=== PATIENT | female | born 1985 | race Caucasian/White ===

== ENCOUNTER 2017-12-12 09:03 | Inpatient (IN) | payer MEDICAID, OTHER ==
[~2017-12-12] VITALS: Ht 149.9 cm; Wt 72.1 kg
[~2017-12-12 09:03] MED LIST: FERR325E14 PO; IBUP-974 PO; PREN-385 PO
[2017-12-12] MEDS ORDERED: LACTATED RINGERS 1,000 ML IV SCH (09:32)
[2017-12-12] MEDS ORDERED: OXYTOCIN 20 UNITS in LACTATED RINGERS 1,000 ML IV SCH (09:32)
[2017-12-12] MEDS ORDERED: NALBUPHINE 10 MG/ML AMP IVP PRN (09:35)
[2017-12-12] MEDS ORDERED: OXYTOCIN 10 UNITS/ML VIAL IM ONE (09:35)
[2017-12-12] MEDS ORDERED: AMPICILLIN 2,000 MG in NACL 0.9% 100 ML IV SCH (09:46)
[2017-12-12 10:54] LABS: BASOPHILS % (AUTO) 0.2 % (0.0-2.0); EOSINOPHILS % (AUTO) 0.3 % (0.0-4.0); HEMATOCRIT 36.3 % (36-48); LYMPHOCYTES # (AUTO) 1.6 K/uL (2.5-16.5); LYMPHOCYTES % (AUTO) 19.3 % (20.5-51.1); MEAN CORPUSCULAR HEMOGLOBIN 29 pg (27-31); MEAN CORPUSCULAR HGB CONC 33 g/dL (33-37); MEAN CORPUSCULAR VOLUME 87.2 fL (80-94); MONOCYTES # (AUTO) 0.5 K/uL (0.8-1.0); MONOCYTES % (AUTO) 6.1 % (1.7-9.3); NEUTROPHILS # (AUTO) 6.3 K/uL (1.8-7.7); NEUTROPHILS % (AUTO) 74.1 % (42.2-75.2); PLATELET COUNT (AUTO) 211 K/uL (140-450); RED BLOOD CELL COUNT(AUTO) 4.16 MIL/uL (4.20-5.40); RED CELL DISTRIBUTION WIDTH 14.3 % (11.6-13.7); WHITE BLOOD COUNT (AUTO) 8.6 K/uL (4.8-10.8)
[2017-12-12] MEDS ORDERED: AMPICILLIN 2,000 MG VIAL ONE (10:54)
[2017-12-12 11:14] LABS: BILIRUBIN,URINE NEGATIVE (NEGATIVE); COLOR,URINE YELLOW (YELLOW); LEUKOCYTE ESTERASE ,URINE NEGATIVE (NEGATIVE); NITRITE, URINE NEGATIVE (NEGATIVE); PH,URINE 6.5 (5.0-9.0); UGLUCOSE NEGATIVE (NEGATIVE)
[2017-12-12 11:36] LABS: WBC,URINE 0-5 (RARE) /HPF (0-5)
[2017-12-12 11:37] LABS: ALBUMIN 2.8 g/dL (3.4-5.0); ANION GAP 16.3 (8-16); CARBON DIOXIDE 21.4 mmol/L (21-32); CREATININE 0.6 mg/dL (0.6-1.3); POTASSIUM 3.7 mmol/L (3.5-5.1); TOTAL BILIRUBIN 0.5 mg/dL (0.0-1.0)
[2017-12-12 11:38] LABS: BLOOD, URINE 1+ (NEGATIVE)
[2017-12-12 11:39] LABS: APPEARANCE,URINE SLIGHTLY HAZY (CLEAR); RBC,URINE 0-5 (RARE) /HPF (0-5)
[2017-12-12 12:06] LABS: RAPID PLASMA REAGIN NON-REACTIVE (Non Reactiv)
[2017-12-12 12:25] VITALS: BP 115/74
[2017-12-12] MEDS ORDERED: NALBUPHINE 10 MG/ML AMP ONE (13:13)
[2017-12-12] MEDS ORDERED: PROMETHAZINE 25 MG/ML VIAL ONE (13:13)
[2017-12-12] MEDS ORDERED: AMPICILLIN 1,000 MG in NACL 0.9% 50 ML IV SCH (14:00)
[2017-12-12] MEDS ORDERED: OXYTOCIN 10 UNITS/ML VIAL ONE (14:34)
[2017-12-12] MEDS ORDERED: METHYLERGONOVINE 0.2 MG/ML AMP ONE (15:23)
[2017-12-12] MEDS ORDERED: METHYLERGONOVINE 0.2 MG/ML AMP IM PRN (15:35)
[2017-12-12] MEDS ORDERED: IBUPROFEN 800 MG TAB PO PRN (16:40)
[2017-12-12] MEDS ORDERED: oxyCODONE/APAP 5/325 MG 1 TAB TAB PO PRN (16:40)
[2017-12-12] MEDS ORDERED: BENZOCAINE/MENTHOL 20%-0.5% 60 GM CAN TP PRN (16:40)
[2017-12-12] MEDS ORDERED: HYDROcodone/APAP 5/325 MG 1 TAB TAB PO PRN (16:40)
[2017-12-12] MEDS ORDERED: TEMAZEPAM 15 MG CAP PO PRN (16:40)
[2017-12-12] MEDS ORDERED: DOCUSATE SOD/SENNA 50/8.6 MG 1 TAB PO SCH (21:00)
[2017-12-13 08:03] LABS: HEMATOCRIT 30.9 % (36-48); HEMOGLOBIN 10.1 g/dL (12.0-16.0)
--- NOTE | 2017-12-13 09:11 | NUR ---
PATIENT HAS BEEN SCREENED AND CATEGORIZED LOW NUTRITION RISK. PATIENT WILL BE SEEN WITHIN 7 DAYS OF ADMISSION. 12/18/[address]
== END 2017-12-14 12:10 | disposition home or self-care (01) | DRG 775 ==
LOC: MLD 09:03 → OBSVTOIN 09:36 → MFCC 18:30
PROVIDERS: ADMIT Obstetrics & Gynecology; ATTEND Obstetrics & Gynecology
PROC: 10E0XZZ Delivery of Products of Conception, External Approach (ICD-10-PCS; principal; 2017-12-12)
PROC: 0HQ9XZZ Repair Perineum Skin, External Approach (ICD-10-PCS; 2017-12-12)
DX: O70.0 First degree perineal laceration during delivery (principal); Z37.0 Single live birth; Z3A.37 37 weeks gestation of pregnancy; Z28.21 Immunization not carried out because of patient refusal
CPT/HCPCS: 36415; 59409; 80053; 81001; 85018; 85025; 86592; 86886; 86900; 86901; G0378; J0290; J2210; J2300; J2550; J2590; J7120

== ENCOUNTER 2021-11-09 19:00 | Inpatient (IN) | payer OTHER ==
[~2021-11-09] VITALS: Ht 154.9 cm; Wt 68.9 kg
[2021-11-09] MEDS ORDERED: LACTATED RINGERS 1,000 ML IV SCH (19:40)
[2021-11-09 20:09] LABS: BASOPHILS % (AUTO) 0.3 % (0.0-2.0); EOSINOPHILS # (AUTO) 0.1 K/uL (0-0.4); EOSINOPHILS % (AUTO) 0.6 % (0.0-4.0); HEMATOCRIT 36.7 % (36-48); HEMOGLOBIN 12.3 g/dL (12.0-16.0); LYMPHOCYTES # (AUTO) 2.2 K/uL (2.5-16.5); LYMPHOCYTES % (AUTO) 25.3 % (20.5-51.1); MEAN CORPUSCULAR HEMOGLOBIN 30 pg (27-31); MEAN CORPUSCULAR HGB CONC 34 g/dL (33-37); MEAN CORPUSCULAR VOLUME 90.3 fL (80-94); MONOCYTES # (AUTO) 0.5 K/uL (0.8-1.0); MONOCYTES % (AUTO) 5.2 % (1.7-9.3); NEUTROPHILS % (AUTO) 68.6 % (42.2-75.2); PLATELET COUNT (AUTO) 243 K/uL (140-450); RED BLOOD CELL COUNT(AUTO) 4.07 MIL/uL (4.20-5.40); RED CELL DISTRIBUTION WIDTH 13.9 % (11.6-13.7); WHITE BLOOD COUNT (AUTO) 8.7 K/uL (4.8-10.8)
[2021-11-09 20:13] LABS: APPEARANCE,URINE CLEAR (CLEAR); BILIRUBIN,URINE NEGATIVE (NEGATIVE); BLOOD, URINE TRACE-I (NEGATIVE); COLOR,URINE YELLOW (YELLOW); LEUKOCYTE ESTERASE ,URINE 2+ (NEGATIVE); NITRITE, URINE NEGATIVE (NEGATIVE); PH,URINE 6.5 (5.0-9.0); UGLUCOSE NEGATIVE (NEGATIVE)
[2021-11-09 20:21] LABS: ALBUMIN 3.5 g/dL (3.4-5.0); ANION GAP 13.5 (8-16); CARBON DIOXIDE 24.7 mmol/L (21-32); CREATININE 0.7 mg/dL (0.6-1.3); POTASSIUM 3.2 mmol/L (3.5-5.1); TOTAL BILIRUBIN 0.4 mg/dL (0.0-1.0)
[2021-11-09 20:33] LABS: PROTHROMBIN TIME 10.1 secs (10.8-13.4)
[2021-11-09 20:34] LABS: RBC,URINE 0-5 /HPF (0-5)
[2021-11-09 20:35] LABS: CALCIUM OXALATE CRYSTALS,UR 0-10 /HPF (None Seen); OTHER CASTS, URINE None Seen /LPF (None Seen)
[2021-11-09 20:37] LABS: BARBITURATE, URINE NEGATIVE ng/ml (NEG <=200); BENZODIAZEPINE, URINE NEGATIVE ng/mL (NEG <=200); CANNABINOID, URINE NEGATIVE ng/mL (NEG <=50); COCAINE, URINE NEGATIVE ng/mL (NEG <=300); OPIATE, URINE NEGATIVE ng/mL (NEG <=2000); PHENCYCLIDINE SCREEN,URINE NEGATIVE ng/mL (NEG <=25)
[2021-11-09] MEDS: MISOPROSTOL 100 MCG TAB PO PRN (21:34)
[2021-11-09 21:43] VITALS: BP 112/55
[2021-11-10] MEDS: MISOPROSTOL 100 MCG TAB PO PRN ×3 (01:46→09:39)
--- NOTE | 2021-11-10 09:56 | NUR ---
PATIENT HAS BEEN SCREENED AND CATEGORIZED LOW NUTRITION RISK. PATIENT WILL BE SEEN WITHIN 7 DAYS OF ADMISSION. 11/09/[address] Addendum: 11/10/21 at [address] *CORRECTION* 11/16/21
[2021-11-10] MEDS ORDERED: ONDANSETRON 4 MG/2 ML VIAL IVP PRN (11:15)
[2021-11-10] MEDS: MORPHINE SULFATE 4 MG/ML SYR IVP PRN ×2 (11:29→17:04)
[2021-11-10] MEDS ORDERED: OXYTOCIN 20 UNITS in LACTATED RINGERS 1,000 ML IV SCH (19:20)
[2021-11-10] MEDS ORDERED: OXYTOCIN 20 UNITS/LR PREMIX 1,000 ML IV ONE (19:35)
[2021-11-11] MEDS ORDERED: METHYLERGONOVINE 0.2 MG/ML AMP IM PRN (03:40)
[2021-11-11] MEDS ORDERED: TEMAZEPAM 15 MG CAP PO PRN (03:40)
[2021-11-11] MEDS ORDERED: oxyCODONE/APAP 5/325 MG 1 TAB TAB PO PRN ×2 (03:40)
[2021-11-11] MEDS ORDERED: IBUPROFEN 800 MG TAB PO PRN (03:40)
[2021-11-11] MEDS ORDERED: METHYLERGONOVINE 0.2 MG TAB PO PRN (03:40)
[2021-11-11] MEDS ORDERED: BENZOCAINE/MENTHOL 20%-0.5% 60 GM CAN TP PRN (03:40)
[2021-11-11] MEDS ORDERED: OXYTOCIN 10 UNITS/ML VIAL IM PRN (03:40)
[2021-11-11 08:52] LABS: HEMATOCRIT 29.4 % (36-48); HEMOGLOBIN 9.9 g/dL (12.0-16.0)
[2021-11-11] MEDS ORDERED: DOCUSATE SOD/SENNA 50/8.6 MG 1 TAB PO SCH (21:00)
== END 2021-11-11 12:05 | disposition home or self-care (01) | DRG 807 ==
LOC: MLD 19:00 → OBSVTOIN 19:00
PROVIDERS: ADMIT Obstetrics & Gynecology; ATTEND Obstetrics & Gynecology
PROC: 10E0XZZ Delivery of Products of Conception, External Approach (ICD-10-PCS; principal; 2021-11-11)
DX: O36.4XX0 Maternal care for intrauterine death, not applicable or unspecified (principal); Z37.1 Single stillbirth; Z20.822 Contact with and (suspected) exposure to COVID-19; Z3A.21 21 weeks gestation of pregnancy
CPT/HCPCS: 36415; 59200; 59409; 76815; 80053; 80305; 81001; 85018; 85025; 85379; 85384; 85610; 85730; 86592; 86762; 86886; 86900; 86901; 87086; 87340; J2270; J2405; J2590; J7120; Q0092

== ENCOUNTER 2022-06-25 09:41 | Emergency (ER) | payer OTHER ==
[~2022-06-25] VITALS: Ht 154.9 cm; Wt 71.7 kg
[~2022-06-25 09:41] MED LIST changes: -IBUP-974 PO
[2022-06-25 09:44] VITALS: BP 153/69
--- NOTE | 2022-06-25 10:22 | NUR ---
36 yo/f presents to ED w c/o vaginal bleeding upon wakening x1 episode only upon wiping, reports she is approx 2 months , + int cramping 07/03 but none at this time. denies vaginal discharge. pmh: denies allergies: denies
--- NOTE | 2022-06-25 10:28 | NUR ---
US at bedside
[2022-06-25 11:10] LABS: APPEARANCE,URINE CLEAR (CLEAR); BILIRUBIN,URINE NEGATIVE (NEGATIVE); BLOOD, URINE 1+ (NEGATIVE); COLOR,URINE YELLOW (YELLOW); LEUKOCYTE ESTERASE ,URINE NEGATIVE (NEGATIVE); NITRITE, URINE NEGATIVE (NEGATIVE); UGLUCOSE NEGATIVE (NEGATIVE)
[2022-06-25 11:58] LABS: BASOPHILS % (AUTO) 0.4 % (0.0-2.0); EOSINOPHILS % (AUTO) 0.5 % (0.0-4.0); HEMATOCRIT 40.4 % (36-48); HEMOGLOBIN 13.4 g/dL (12.0-16.0); LYMPHOCYTES # (AUTO) 2.3 K/uL (2.5-16.5); LYMPHOCYTES % (AUTO) 26.5 % (20.5-51.1); MEAN CORPUSCULAR HEMOGLOBIN 30 pg (27-31); MEAN CORPUSCULAR HGB CONC 33 g/dL (33-37); MEAN CORPUSCULAR VOLUME 90.9 fL (80-94); MONOCYTES # (AUTO) 0.6 K/uL (0.8-1.0); MONOCYTES % (AUTO) 6.6 % (1.7-9.3); NEUTROPHILS # (AUTO) 5.8 K/uL (1.8-7.7); PLATELET COUNT (AUTO) 291 K/uL (140-450); RED BLOOD CELL COUNT(AUTO) 4.44 MIL/uL (4.20-5.40); RED CELL DISTRIBUTION WIDTH 13.9 % (11.6-13.7); WHITE BLOOD COUNT (AUTO) 8.8 K/uL (4.8-10.8)
[2022-06-25] MEDS ORDERED: PREN-371 PO (13:15)
[2022-06-25 14:04] VITALS: BP 119/71
--- NOTE | 2022-06-25 14:05 | NUR ---
Patient discharged with v/s stable. Written and verbal after care instructions given and explained. Patient alert, oriented and verbalized understanding of instructions. Ambulatory with steady gait. All questions addressed prior to discharge. ID band removed. Patient advised to follow up with PMD. Rx of vit given. Patient educated on indication of medication including possible reaction and side effects. Opportunity to ask questions provided and answered.
== END 2022-06-25 14:04 | disposition home or self-care (01) ==
LOC: MED 09:41
DX: O20.0 Threatened abortion (principal); Z3A.01 Less than 8 weeks gestation of pregnancy; Z79.899 Other long term (current) drug therapy
CPT/HCPCS: 36415; 76817; 81003; 81025; 84702; 85025; 86900; 86901; 99284; Q0092